=== PATIENT | female | born 1945 | race Caucasian/White ===

== ENCOUNTER 2019-11-04 02:52 | Inpatient (IN) | payer OTHER, SELFPAY ==
[2019-11-04] VITALS (19 sets, daily range): BP systolic 105–125; BP diastolic 39–88; PULSE 51–71; RESP 16–20; TEMP 36.2–36.7; O2SAT 95–100; BMI 27.6
--- NOTE | 2019-11-04 | ECHO_ITS ---
Patient Info Name: Michelle Ocampo Age: 74 years : 1945 Gender: Female Ht: 65 in Wt: 166 lbs BSA: 1.88 m2 HR: 66 bpm BP: 107 / 62 mmHg Technical Quality: Good Exam Date: 11/04/2019 11:22 AM Exam Location: [facility] Pulmonary Patient Status: Inpatient Admit Date: 11/04/2019 Staff Ordering Physician: Sukumar Bowie DO Cio: Monie Babcock RDCS Attending Provider: Sarita Gillespie PA-C Referring Physician: Jamir HANSON; Exam Type: CA echo doppler color flow Study Info Indications R79.89 - elevated troponin R07.89 - Other chest pain Complete two-dimensional, color flow and Doppler transthoracic echocardiogram is performed. Summary 1. Left ventricular chamber dimension is normal. 2. Left ventricular septal wall motion is abnormal with septal motion related to intraventricular conduction delay. 3. Left ventricular systolic function is normal, estimated at 50-55%. 4. The left ventricular diastolic function is grade I diastolic dysfunction. 5. E/e' 6 is not elevated. 6. Global longitudinal strain is mildly abnormal at -16.6%. 7. Left atrial chamber dimension is mildly enlarged. 8. Atrial septal aneurysm with mild left to right interatrial shunt by color doppler suggestive of atrial septal defect or patent foramen ovale. 9. There is mild aortic valve sclerosis. 10. No pulmonary hypertension, estimated pulmonary arterial systolic pressure is 21 mmHg. Left Ventricle E/e' 6 is not elevated. Global longitudinal strain is mildly abnormal at -16.6%. Left ventricular septal wall motion is abnormal with septal motion related to intraventricular conduction delay. Left ventricular chamber dimension is normal. Left ventricular systolic function is normal, estimated at 50-55%. The left ventricular diastolic function is grade I diastolic dysfunction. Right Ventricle Right ventricular chamber dimension is normal. Right ventricular systolic function is normal. Left Atria Left atrial chamber dimension is mildly enlarged. Right Atria Right atrial chamber dimension is normal. Atrial Septum Atrial septal aneurysm with mild left to right interatrial shunt by color doppler suggestive of atrial septal defect or patent foramen ovale. Aortic Valve The aortic valve is trileaflet. There is mild aortic valve sclerosis. There is no aortic valve stenosis. There is no aortic valve regurgitation. Pulmonic Valve There is no pulmonic regurgitation. Mitral Valve There is no mitral valve stenosis. There is no mitral valve regurgitation. Tricuspid Valve There is no tricuspid valve regurgitation. No pulmonary hypertension, estimated pulmonary arterial systolic pressure is 21 mmHg. Pericardium/Pleural There is no pericardial effusion. Inferior Vena Cava Normal inferior vena cava with >50% collapse upon inspiration consistent with normal right atrial pressure, 5 mmHg. Aorta The aortic root size at the sinus of Valsalva is normal. Left Ventricular Outflow Tract Name Value Normal LVOT 2D LVOT Diameter 2.0 cm LVOT Doppler LVOT Peak Gradient 4 mmHg LVOT Mean Gradient
--- NOTE | ~2019-11-04 | XR_ITS ---
EXAMINATION: XR chest 2V DATE: 11/04/2019 03:31 INDICATION: Chest tightness. TECHNIQUE: Frontal and lateral views of the chest were obtained. COMPARISON: Chest single view 06/09/2014 FINDINGS: The chest demonstrates clear lungs without pneumonia, pleural effusion, or pneumothorax. Th e heart size is normal. IMPRESSION: 1. No acute cardiopulmonary disease. Reviewed, dictated and finalized at location A.
[2019-11-04 03:34] LABS: Basophils Absolute Auto 0.1 K/mm3 (0.0-0.1); Basophils Percent Auto 0.7 % (0.2-1.2); Eosinophils Absolute Auto 0.4 K/mm3 (0-0.3); Eosinophils Percent Auto 4.3 % (0-4.4); Hematocrit 34.8 % (37.0-47.0); Hemoglobin 11.7 g/dL (12.0-15.0); Immature Granulocyte Absolute 0.02 K/mm3 (0.00-0.031); Immature Granulocyte Percent A 0.2 % (0-0.5); Lymphocytes Absolute Auto 2.31 K/mm3 (0.9-3.2); Lymphocytes Percent Auto 26.1 % (18.3-44.2); Mean Corpuscular HGB Conc 33.6 g/dl (32-36); Mean Corpuscular Hemoglobin 29.6 pg (26-34); Mean Corpuscular Volume 88.1 fl (80-100); Mean Platelet Volume 11.1 fl (7.4-10.4); Monocytes Absolute Auto 0.8 K/mm3 (0.1-0.6); Monocytes Percent Auto 8.8 % (2.6-8.5); Neutrophils Absolute Auto 5.3 K/mm3 (1.3-6.7); Neutrophils Percent Auto 59.9 % (45.5-73.1); Platelet Count Result 295 k/mm3 (150-375); Red Blood Count 3.95 M/mm3 (4.2-5.4); Red Cell Distribution Width 14.8 % (11.5-14.5); White Blood Count 8.9 K/mm3 (4.5-10.0)
[2019-11-04 03:48] LABS: Prothrombin Time 13.1 Seconds (11.1-14.7)
[2019-11-04 03:49] LABS: Partial Thromboplastin Time 28.9 SECONDS (22.3-36.8)
--- NOTE | 2019-11-04 03:49 | ED.GENADULT ---
HPI - General Adult General Chief complaint: Chest Pain Stated complaint: chest pain Time Seen by Provider: 11/04/19 02:53 History of Present Illness HPI narrative: Patient is a 74-year-old female who presents with multiple complaints. First complaint is tingling/paresthesias to bilateral lower and upper extremities. This is associated with muscle cramping. Symptoms have been pretty persistent for the last week. They originally started in the legs and then moved to involve the upper extremities. No known trauma. Patient has been working in her yard without issue and is wondering if she is sore from that. Unfortunately over the last 24 hours patient has been having central chest pressure without radiation to the shoulder/neck/arm. No aggravating or alleviating factors for this. Related Data Home Medications Medication Instructions Recorded Confirmed albuterol sulfate 90 mcg/actuation 1 inhalation INHALATION Q4H PRN 06/29/19 11/04/19 aerosol inhaler hydrochlorothiazide 12.5 mg tablet 12.5 mg PO DAILY 06/29/19 11/04/19 ibuprofen 400 mg PO Q6H PRN 11/04/19 11/04/19 Allergies Allergy/AdvReac Type Severity Reaction Status Date / Time buckwheat Allergy Unknown Verified 11/04/19 06:06 Review of Systems Review of Systems: All systems reviewed & are unremarkable except as noted in HPI and below Cardiovascular: Cardiovascular: Reports chest pain and Denies radiating jaw, neck or arm pain Respiratory: Respiratory: Denies cough, Denies dyspnea and Denies wheezing Musculoskeletal: Musculoskeletal: Reports back pain, Denies myalgias and Reports muscle cramps Neurologic: Denies focal weakness and Reports numbness PMFSH Past Medical History Medical History (Updated 11/04/19 @ 06:40 by Anurag Rodriguez MD) Essential (primary) hypertension Surgical History Surgical History (Updated 11/04/19 @ 06:42 by Anurag Rodriguez MD) H/O gastric bypass Social History Social History Smoking status: Never smoker Second hand tobacco smoke exposure: No Alcohol intake: never Substance use: never Substance use type: does not use Gender identity (if verbalized by the patient): Female Spiritual care concerns: No Agree to blood products: No Exam Narrative: Exam Narrative: GENERAL: Well-appearing, well-nourished, and in no acute distress. HEAD: Normocephalic, atraumatic. ENT: Mucous membranes moist. NECK: Supple. CHEST: Clear to auscultation. No respiratory distress. HEART: Regular rate and rhythm. Normal peripheral pulses. ABDOMEN: Soft, nontender, nondistended. EXTREMITIES: Normal range of motion. No edema. Back: No midline tenderness of thoracic or lumbar spine. There is mild paraspinal muscle tenderness in the L4 region greater than left. SKIN: Warm, dry, no rash. NEURO: Cranial nerves II through XII intact, sharp/soft touch intact in upper and lower extremities. Alert and oriented x3. Course Course Emergency Course: Patient informed of results. Admit to hospitalist. IV potassium ordered. Will trend troponins at recommendation of cardiology and not give heparin at this time. Vital Signs Vital signs: Vital Signs Temperature 97.5 F L 11/04/19 03:00 Pulse Rate 65 11/04/19 03:00 Respiratory Rate 20 11/04/19 03:00 Blood Pressure 115/73 11/04/19 03:00 Pulse Oximetry 100 11/04/19 03:00 Temperature 98.1 F 11/04/19 05:25 Pulse Rate 64 11/04/19 05:25 Respiratory Rate 20 11/04/19 05:25 Blood Pressure 111/47 L 11/04/19 05:25 Pulse Oximetry 95 11/04/19 05:25 Medical Decision Making Vital Signs Vital Signs: Vital Signs Temperature 97.5 F L 11/04/19 03:00 Pulse Rate 65 11/04/19 03:00 Respiratory Rate 20 11/04/19 03:00 Blood Pressure 115/73 11/04/19 03:00 Pulse Oximetry 100 11/04/19 03:00 Temperature 98.1 F 11/04/19 05:25 Pulse Rate 64 11/04/19 05:25 Respiratory Rate 20 11/04/19 05:25 Blood Pressure 111/47 L 11/04/19 05:25 Pulse
[2019-11-04 04:01] LABS: Blood Urea Nitrogen 19 mg/dL (7-17); Calcium 5.5 mg/dL (8.4-10.2); Carbon Dioxide 33 mmol/L (22-30); Chloride 101 mmol/L (98-107); Estimated CRCL calculation 34 ml/min; Estimated Glomerular Filt Rate 44; Glucose 107 mg/dL (65-105); Potassium 2.2 mmol/L (3.4-5.0); Sodium 141 mmol/L (137-145)
[2019-11-04] MEDS: NITROGLYCERIN OINTMENT 1 INCH DOSE 0.5 INCH TRANSDERM (05:03)
[2019-11-04] MEDS: CALCIUM GLUC 1,000 MG/NS 50 ML 1,000 MG/50 ML BAG 100 MG IVPB (05:04)
--- NOTE | 2019-11-04 05:43 | ADMGEN ---
This patient, Michelle Ocampo, was admitted to IMU Room 201-01 on 11/04/19 at 0520. Patient/family oriented to hospital policies and general routines including ID bracelet, bed and alarms, visiting hours, pain management, procedures, bathroom and other care routines, personal items, smoking policy, room service/diet, and visiting hours. Valuables list has been completed. Information on how to activate the Rapid Response Team has been discussed. Patient/Family are encouraged to report perceived risks to care and to ask questions if they do not understand what they are told or what they should do.
[2019-11-04 07:10] LABS: Troponin I 0.163 ng/mL (0.000-0.034)
[2019-11-04 07:59] LABS: Troponin I 0.191 ng/mL (0.000-0.034)
--- NOTE | 2019-11-04 10:11 | ECG_ITS ---
Measurements Intervals Basin Rate: 63 P: -17 MS: 104 QRS: 53 QRSD: 77 T: 16 QT: 411 QTc: 423 Interpretive Statements SINUS OR ECTOPIC ATRIAL RHYTHM WITH SHORT MS INTERVAL ATRIAL PREMATURE COMPLEXES NONSPECIFIC ST & T-WAVE ABNORMALITY- ANTEROLAT/INF LEADS BASELINE WANDER- V2 BORDERLINE ECG Electronically Signed On 11-04-2019 10:43:49 CDT by Sukumar SULLIVAN
[2019-11-04 10:53] LABS: Blood Urea Nitrogen 16 mg/dL (7-17); Calcium 5.7 mg/dL (8.4-10.2); Carbon Dioxide 33 mmol/L (22-30); Chloride 103 mmol/L (98-107); Estimated CRCL calculation 38 ml/min; Estimated Glomerular Filt Rate 44; Glucose 100 mg/dL (65-105); Magnesium 0.9 mg/dL (1.6-2.3); Sodium 141 mmol/L (137-145)
--- NOTE | 2019-11-04 11:15 | PM.CNCAR ---
Assessment and Plan Assessment and plan (1) Essential (primary) hypertension: Code(s): I10 - Essential (primary) hypertension Status: Acute Assessment and Plan: Stable. Discontinue HCTZ. Start Toprol XL 12.5 mg daily. (2) H/O paroxysmal supraventricular tachycardia: Code(s): Z86.79 - Personal history of other diseases of the circulatory system Status: Acute Assessment and Plan: Start Toprol XL 125 mg daily. (3) Acute hypokalemia: Code(s): E87.6 - Hypokalemia Status: Acute Assessment and Plan: Replete potassium and Mag levels. (4) Chest pain: Code(s): R07.9 - Chest pain, unspecified Status: Acute Assessment and Plan: This could be related to muscle spasms in general affecting extremities and chest. (5) Elevated troponin: Code(s): R79.89 - Other specified abnormal findings of blood chemistry Status: Acute Assessment and Plan: Mild and trending down, could be related to hypokalemia and muscle spasms. Obtain echo to assess for wall motion abnormalities. History of Present Illness History of Present Illness Consult date/time: 11/04/19 11:15 Reason for consult: Elevated troponin and chest pains. 74 yr old woman with a history of hypertension PSVT (stopped Diltiazem due to edema) presents to hospital due to noting cramping and numbness/tingling of upper and lower extremities in the past 1 week and then it went to her diaphragm and chest with chest pressure at rest up to 5/10 in intensity and currently at 1/10. States she has been taking HCTZ for many years. She was trying to drink more milk but has lactose intolerance and was having diarrhea for over a month and last episode was a month ago when she stopped drinking milk. She can walk at least 4 blocks without any problems of chest pain or sob, normally. Upon arrival to ED labs shows her potassium is very low at 2.2, Mag 0.9, Calcium 5.5. Troponins mildly elevated and trending down 0.19 to 0.16 to 0.15. EKG shows sinus rhythm with borderline ST abonormality in anterolat/inf leads. Reason For Visit: Stemi, Hypokalemia, Hypocalcemia, Paresthesia Review of Systems Review of Systems: All systems reviewed & are unremarkable except as noted in HPI and below Constitutional: Constitutional: Reports as per HPI and Denies chills Cardiovascular: Cardiovascular: Reports as per HPI, Reports chest pain, Denies leg edema and Denies lightheadedness Respiratory: Respiratory: Reports as per HPI and Denies dyspnea Gastrointestinal: Gastrointestinal: Reports as per HPI and Denies abdominal pain Genitourinary: Genitourinary: Reports as per HPI and Denies urinary frequency Musculoskeletal: Musculoskeletal: Reports as per HPI and Reports myalgias Comments: Cramping of lower extremities then progressed to diaphragm and into chest. Tingling of upper extremities. Neurologic: Reports as per HPI and Reports numbness PMFSH Past Medical History Medical History (Updated 11/04/19 @ 11:23 by Sukumar Bowie DO) Essential (primary) hypertension Surgical History Surgical History (Updated 11/04/19 @ 06:42 by Anurag Rodriguez MD) H/O gastric bypass Social History Social History Smoking status: Never smoker Second hand tobacco smoke exposure: No Alcohol intake: never Substance use: never Substance use type: does not use Gender identity (if verbalized by the patient): Female Spiritual care concerns: No Agree to blood products: No Meds Home Medications and Allergies Home Medications Medication Instructions Recorded Confirmed Type albuterol sulfate 90 mcg/actuation 1 inhalation INHALATION Q4H PRN 06/29/19 11/04/19 History aerosol inhaler hydrochlorothiazide 12.5 mg tablet 12.5 mg PO DAILY 06/29/19 11/04/19 History lisinopril 5 mg tablet 5 mg PO DAILY #90 tablet 06/29/19 11/04/19 Rx ibuprofen 400 mg PO Q6H PRN 11/04/19 11/04/19 History Allergies Allergy/AdvReac T
--- NOTE | 2019-11-04 11:31 | PM.IMHP ---
H&P: HPI History of Present Illness Chief complaint: Extremity numbness/tingling and chest pain Narrative: Date of Service 11/04/19 ; 0864 The supervising physician for this history and physical is Dr Diane Rae. Ms. Ocampo is a pleasant 74yo F with history of hypertension who presented to the ED for evaluation of chest pressure. She notes that about 1 week ago, she began to notice numbness and tingling in both of her legs from her feet to her hips. A few days after that, she noticed numbness and tingling in her arms and hands accompanied by muscle cramps. Her symptoms are symmetric bilaterally. She denies any back, leg, or arm pain. She denies bowel or bladder incontinence. She described that, in the last day or two, the numbness and tingling had ascended to her trunk and gave her a sensation of pressure in the middle/left side of her chest. She noted her numbness/tingling worsened in the ER when the blood pressure cuff squeezed her arm and made her hand cramp up. She denies any shortness of breath or cough. She denies any nausea or vomiting. Her potassium was 2.2 on arrival and she recieved 40 meq IV potassium. Troponins are elevated. She has previously followed with [facility] over 5 years ago but wishes to establish care with Dr Bowie since her sees Dr Bowie. Discussed case with Dr Bowie who has agreed to see Ms. Ocampo in consultation. She is being admitted for chest pain and hypokalemia. Review of Systems Review of Systems: Narrative: She reports parasthesias described above and a chest pressure. No nausea, vomiting, diarrhea, or constipation. No headaches, dizziness, or lightheadedness. Twelve systems were reviewed with pertinent positives and negatives as per HPI. Except as documented, all other systems were reviewed and are negative. [facility] Past Medical History Medical History (Updated 11/04/19 @ 20:03 by Sarita Gillespie PA-C) Complaint of paresthesia Essential (primary) hypertension History of nephrolithotomy with removal of calculi Surgical History Surgical History H/O cataract removal with insertion of prosthetic lens Right - May 2019 History of cholecystectomy 1970s. 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 She denies alcohol use, remote history of smoking cigarettes for 1 year, denies substance use. PCP is Dr Moya. She designates her , Will, as her surrogate decision maker. She wishes to be full code status. Smoking status: Never smoker Second hand tobacco smoke exposure: No Alcohol intake: never Substance use: never Substance use type: does not use Living arrangements: with family Occupation/Education: retired Gender identity (if verbalized by the patient): Female Spiritual care concerns: No Agree to blood products: No Meds Home Medications and Allergies Home Medications Medication Instructions Recorded Confirmed Type albuterol sulfate 90 mcg/actuation 1 inhalation INHALATION Q4H PRN 06/29/19 11/04/19 History aerosol inhaler hydrochlorothiazide 12.5 mg tablet 12.5 mg PO DAILY 06/29/19 11/04/19 History lisinopril 5 mg tablet 5 mg PO DAILY #90 tablet 06/29/19 11/04/19 Rx ibuprofen 400 mg PO Q6H PRN 11/04/19 11/04/19 History Allergies Allergy/AdvReac Type Severity Reaction Status Date / Time buckwheat Allergy Unknown Verified 11/04/19 06:06 Vital Signs Last Vital Signs Temp 97.1 F L 11/04/19 16:00 Pulse 59 L 11/04/19 18:00 Resp 16 11/04/19 16:00
[2019-11-04] MEDS: METOPROLOL SUCCINATE EXT REL 12.5 MG TABCR PO (12:52)
[2019-11-04] MEDS: ASPIRIN 325 MG TABLET PO (12:52)
[2019-11-04] MEDS: POTASSIUM CHLORIDE 20 MEQ TABLET 80 MEQ PO (12:53)
[2019-11-04] MEDS: ACETAMINOPHEN 325 MG TABLET 650 MG PO (12:53)
[2019-11-04] MEDS: MAGNESIUM SULF 1 GM/D5W 100 ML 1 GM/100 ML BAG IVPB (12:55)
[2019-11-04] MEDS: MAGNESIUM SULF 2 GM/WATER 50ML 2 GM/50 ML BAG IVPB (12:55)
[2019-11-04 15:11] LABS: Add Urine Microscopic? YES; Appearance Urine Clear (Clear); Bacteria Urine Trace /hpf; Bilirubin Urine Negative (Negative); Blood Urine 3+ (Negative); Color Urine Yellow (Yellow); Glucose Urine UA Negative (Negative); Ketones Urine Negative (Negative); Leukocyte Esterase Ur Trace LEU/UL (Negative); Mucus Urine Rare /lpf; Nitrate Urine Negative (Negative); Protein Urine 1+ mg/dL (Negative); RBC Urine 0-2 /hpf (0-2); Squamous Epithelial Cell Urine Moderate /hpf (Few); Urobilinogen Urine Negative mg/dL (<2.0)
[2019-11-04] MEDS: CALCIUM GLUC 2,000 MG/NS 100ML 2,000 MG/100 ML BAG 100 MG IVPB (17:19)
[2019-11-04 20:12] LABS: Alanine Aminotransferase 74 U/L (4-35); Albumin Level 3.1 g/dL (3.5-5.1); Alkaline Phosphatase 54 U/L (38-126); Aspartate Amino Transferase 407 U/L (14-36); Bilirubin,Total 0.9 mg/dL (0.2-1.3); Blood Urea Nitrogen 14 mg/dL (7-17); Calcium 6.1 mg/dL (8.4-10.2); Carbon Dioxide 31 mmol/L (22-30); Chloride 103 mmol/L (98-107); Estimated CRCL calculation 42 ml/min; Estimated Glomerular Filt Rate 49; Glucose 101 mg/dL (65-105); Magnesium 1.9 mg/dL (1.6-2.3); Phosphorus 3.3 mg/dL (2.5-4.5); Potassium 2.5 mmol/L (3.4-5.0); Sodium 140 mmol/L (137-145)
[2019-11-04] MEDS: POTASSIUM CHLORIDE 20 MEQ TABLET 40 MEQ PO (21:27)
[2019-11-05] VITALS (13 sets, daily range): BP systolic 94–119; BP diastolic 44–64; PULSE 43–56; RESP 16–21; TEMP 36.1–36.7; O2SAT 98–100
--- NOTE | 2019-11-05 00:59 | PC.NURSE ---
Took report from Kendra Reed awaiting transfer from IMU.
--- NOTE | 2019-11-05 01:21 | PC.NURSE ---
This patient, Michelle Ocampo, was transferred to [[id number] ] on 11/05/19 at 0122. Personal belongings sent with patient. Belongings list checked and signed with receiving [ ]. Report given to [Janine]. Appropriate documentation sent with patient.
[2019-11-05 01:51] LABS: Blood Urea Nitrogen 11 mg/dL (7-17); Calcium 5.8 mg/dL (8.4-10.2); Carbon Dioxide 31 mmol/L (22-30); Chloride 105 mmol/L (98-107); Estimated CRCL calculation 46 ml/min; Estimated Glomerular Filt Rate 55; Glucose 122 mg/dL (65-105); Potassium 2.8 mmol/L (3.4-5.0); Sodium 139 mmol/L (137-145)
[2019-11-05 03:43] LABS: Alanine Aminotransferase 83 U/L (4-35); Albumin Level 3.3 g/dL (3.5-5.1); Alkaline Phosphatase 59 U/L (38-126); Aspartate Amino Transferase 403 U/L (14-36); Bilirubin,Total 0.8 mg/dL (0.2-1.3); Blood Urea Nitrogen 11 mg/dL (7-17); Calcium 5.8 mg/dL (8.4-10.2); Carbon Dioxide 28 mmol/L (22-30); Chloride 107 mmol/L (98-107); Cholesterol 84 mg/dL (0-200); Estimated CRCL calculation 46 ml/min; Estimated Glomerular Filt Rate 55; Glucose 101 mg/dL (65-105); HDL Direct 31 mg/dL; Magnesium 1.8 mg/dL (1.6-2.3); Sodium 139 mmol/L (137-145); Triglycerides 112 mg/dL (<150)
[2019-11-05 03:54] LABS: LDL Cholesterol Direct 35 mg/dL
[2019-11-05 04:03] LABS: Troponin I 0.109 ng/mL (0.000-0.034)
--- NOTE | 2019-11-05 08:59 | PM.PNCARD ---
Progress Note: A&P Assessment and Plan (1) Elevated troponin: Code(s): R79.89 - Other specified abnormal findings of blood chemistry Status: Acute Assessment and Plan: Mildly elevated and trending down. Doubt ACS. Probably related to hypokalemia and muscle spasms. Echo shows EF 50-55% with no wall motion abnormalities. In near future as outpatient would obtain stress nuclear test. (2) H/O paroxysmal supraventricular tachycardia: Code(s): Z86.79 - Personal history of other diseases of the circulatory system Status: Acute (3) Essential (primary) hypertension: Code(s): I10 - Essential (primary) hypertension Status: Acute Assessment and Plan: Low normal due to NTG patch yesterday. Start ToproL XL12.5 mg daily if SBP >100 mmHg. (4) Acute hypokalemia: Code(s): E87.6 - Hypokalemia Status: Acute Assessment and Plan: Due to combination of HCTZ and diarrhea last month from lactose intolerance. Given low albumin and calcium, malabsorption? Replete levels and hold off on discharge until potassium >3.5. (5) Hypocalcemia: Code(s): E83.51 - Hypocalcemia Status: Acute Assessment and Plan: Replete levels. Subjective Date/time seen: 11/05/19 08:59 Denies chest pain or sob. Has some right shoulder discomfort. Exam Const: General: comfortable and no acute distress Neck: Neck: no JVD Carotids: no bruits Resp: Auscultation: clear to auscultation bilaterally, no crackles, no rales, no rhonchi and no wheezes Cardio: Rate: regular rate Rhythm: regular rhythm Heart sounds: no murmurs GI: Inspection: non-distended Neuro: Speech: normal speech Extrem: Right lower extremity: no edema Left lower extremity: no edema Objective Data Vital Signs Vital Signs: Vital Signs - 24 hr 11/04/19 10:00 11/04/19 12:00 11/04/19 12:27 Temperature 97.6 F Pulse Rate 65 57 L 57 L Respiratory Rate 20 Blood Pressure 109/49 L Pulse Oximetry 98 11/04/19 12:52 11/04/19 14:00 11/04/19 16:00 Temperature 97.1 F L Pulse Rate 61 54 L 52 L Respiratory Rate 16 Blood Pressure 109/48 L Pulse Oximetry 100 11/04/19 18:00 11/04/19 19:55 11/04/19 20:00 Temperature 97.2 F L Pulse Rate 59 L 51 L 56 L Respiratory Rate 16 16 Blood Pressure 116/39 L Pulse Oximetry 98 98 11/04/19 21:39 11/04/19 23:49 11/05/19 00:00 Temperature 97.4 F L Pulse Rate 52 L 56 L 56 L Respiratory Rate 16 16 Blood Pressure 105/53 L Pulse Oximetry 98 98 11/05/19 00:45 11/05/19 01:25 11/05/19 01:35 Temperature 97.2 F L Pulse Rate 54 L 50 L 51 L Respiratory Rate 16 16 Blood Pressure 97/64 L Pulse Oximetry 98 99 11/05/19 04:31 11/05/19 06:00 Temperature 97.3 F L Pulse Rate 47 L 53 L Respiratory Rate 16 Blood Pressure 94/44 L Pulse Oximetry 99 Intake/Output Intake/Output: Intake & Output 11/02/19 11/03/19 11/04/19 11/05/19 23:59 23:59 23:59 23:59 Intake Total 2730 1080 Output Total 1700 Balance 1030 1080 Meds/Results Medications: Active Medications Generic Name Dose Route Start Last Admin Trade Name Freq PRN Reason Stop Dose Admin Acetaminophen 650 mg 11/04/19 12:00 11/04/19 12:53 Tylenol Tablet PO 650 mg Q6H PRN Administration Mild Pain (1-3) or Fever Aspirin 325 mg 11/04/19 08:00 11/04/19 12:52 Aspirin PO 325 mg DAILY@0800 [facility] Administration Sodium Chloride 500 mls @ 500 mls/hr 11/05/19 08:17 Normal Saline Iv IV CONT 11/05/19 09:16 .Q1H ONE Calcium Gluconate 2,000 mg in 100 mls @ 100 mls/hr 11/05/19 08:45 Calcium Gluc 2,000 Mg/Ns 100ml IVPB 11/05/19 09:44 ONCE ONE Metoprolol Succinate 12.5 mg 11/04/19 09:00 11/04/19 12:52 Toprol Xl PO 12.5 mg QAM EDILMA Administration Promethazine HCl 12.5 mg 11/04/19 04:46 Phenergan Inj IV PUSH Q6H PRN Nausea Radiology Results: ITS Impressions Chest X-Ray 11/04/19 07:50 ARLINE
[2019-11-05] MEDS: MAGNESIUM SULF 1 GM/D5W 100 ML 1 GM/100 ML BAG IVPB (09:56)
[2019-11-05] MEDS: ASPIRIN 325 MG TABLET PO (09:56)
[2019-11-05] MEDS: CALCIUM GLUC 2,000 MG/NS 100ML 2,000 MG/100 ML BAG 100 MG IVPB (10:09)
--- NOTE | 2019-11-05 10:32 | PM.IMPN ---
Progress Note: A&P Assessment and Plan (1) Acute hypokalemia: Code(s): E87.6 - Hypokalemia Status: Acute Assessment and Plan: Potassium as low as 2.0 yesterday, improving now with replacement. Repeat labs 1900 after next K rider finishes. Continue to aggressively replace K, Mag and calcium and monitor labs. May have been related to correction HCTZ use and recent diarrhea. HCTZ discontinued. Anticipate possible discharge ?tomorrow if K is improved and stable. (2) Hypocalcemia: Code(s): E83.51 - Hypocalcemia Status: Acute Assessment and Plan: Replaced again today with calcium gluconate. Trend with labs. (3) Paresthesia: Code(s): R20.2 - Paresthesia of skin Status: Acute Assessment and Plan: [place] to be related to electrolyte losses. See above. Now improved today if not completely resolved with electrolyte correction. (4) Chest pain: Qualifiers: Chest pain type: unspecified Qualified Code(s): R07.9 - Chest pain, unspecified Code(s): R07.9 - Chest pain, unspecified Status: Acute Assessment and Plan: [place] to be related to above, muscle cramping. Dr Bowie consulted per patient request and appreciate his recommendations - noted his plan for outpatient follow up with stress test. (5) Elevated troponin: Code(s): R79.89 - Other specified abnormal findings of blood chemistry Status: Acute Assessment and Plan: Troponins flat and trending down. ACS not suspected, since pain has improved with electrolyte correction. (6) Acute renal failure: Qualifiers: Acute renal failure type: unspecified Qualified Code(s): N17.9 - Acute kidney failure, unspecified Code(s): N17.9 - Acute kidney failure, unspecified Status: Resolved Assessment and Plan: Resolved. Cr 1.0. Hold home lisinopril and HCTZ. 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 Last 94/44 - asymptomatic. Home HCTZ discontinued, lisinopril held. Dr Bowie initiated metoprolol as long as SBP is > 100. Continue to monitor BP. Subjective Date/time seen: 11/05/19 10:15 Interval history: Ms. Ocampo is a 74yo F admitted due to chest pain and extremity paresthesias, hypokalemia. She reports her JARETH leg and arm numbness and tingling has resolved today. She notes the pressure sensation in her chest has diminished. She had one episode of loose stool this AM but otherwise offers no complaints. She denies shortness of breath or cough. No abdominal pain, nausea, or vomiting. Review of Systems Review of Systems: Narrative: Twelve systems were reviewed with pertinent positives and negatives as per HPI. Exam Narrative: Exam Narrative: General: Well-appearing female sitting up on edge of bed in no acute distress. HEENT: Normocephalic, EOMI, oral mucosa moist. Chest: Clear to auscultation throughout all lung espinosa. Respirations are even and nonlabored. Tolerating room air. Heart: Rate and rhythm regular. Abdomen: Soft, nontender, nondistended, bowel sounds present. Extremities: Peripheral pulses intact. No edema, erythema, or pain to palpation. Neurologic: Alert and oriented x4. No focal neuro deficits appreciate. Speech is clear. Objective Data Vital Signs Vital Signs: Last Vital Signs Temp 97.3 F L 11/05/19 06:00 Pulse 53 L 11/05/19 09:18 Resp 16 11/05/19 06:00 BP 94/44 L 11/05/19 06:00 Pulse Ox 99 11/05/19 06:00 Intake/Output Intake/Output: Intake & Output 11/02/19 11/03/19 11/04/19 11/05/19 23:59 23:59 23:59 23:59 Intake Total 2730 1080 Output
[2019-11-05] MEDS: SODIUM CHLORIDE 0.9% IV 500 ML IV CONT (10:59)
[2019-11-05 11:28] LABS: Alanine Aminotransferase 78 U/L (4-35); Alkaline Phosphatase 52 U/L (38-126); Aspartate Amino Transferase 371 U/L (14-36); Bilirubin,Total 0.9 mg/dL (0.2-1.3); Blood Urea Nitrogen 9 mg/dL (7-17); Calcium 6.1 mg/dL (8.4-10.2); Carbon Dioxide 27 mmol/L (22-30); Chloride 106 mmol/L (98-107); Estimated CRCL calculation 50 ml/min; Estimated Glomerular Filt Rate > 60; Glucose 112 mg/dL (65-105); Magnesium 2.2 mg/dL (1.6-2.3); Phosphorus 2.6 mg/dL (2.5-4.5); Sodium 138 mmol/L (137-145)
[2019-11-05 11:32] LABS: Potassium 2.9 mmol/L (3.4-5.0)
[2019-11-05] MEDS: POTASSIUM CHLORIDE 20 MEQ TABLET 60 MEQ PO (14:31)
[2019-11-05 19:17] LABS: Blood Urea Nitrogen 9 mg/dL (7-17); Calcium 6.5 mg/dL (8.4-10.2); Carbon Dioxide 31 mmol/L (22-30); Chloride 107 mmol/L (98-107); Estimated CRCL calculation 50 ml/min; Estimated Glomerular Filt Rate > 60; Glucose 97 mg/dL (65-105); Magnesium 1.9 mg/dL (1.6-2.3); Potassium 3.5 mmol/L (3.4-5.0); Sodium 141 mmol/L (137-145)
[2019-11-06] VITALS (10 sets, daily range): BP systolic 116–139; BP diastolic 61–88; PULSE 51–74; RESP 16–20; TEMP 36.1–37; O2SAT 97–99
[2019-11-06 04:50] LABS: Hematocrit 30.8 % (37.0-47.0); Hemoglobin 10.4 g/dL (12.0-15.0); Mean Corpuscular HGB Conc 33.8 g/dl (32-36); Mean Corpuscular Hemoglobin 30.1 pg (26-34); Mean Platelet Volume 10.6 fl (7.4-10.4); Platelet Count Result 239 k/mm3 (150-375); Red Blood Count 3.46 M/mm3 (4.2-5.4); Red Cell Distribution Width 14.6 % (11.5-14.5); White Blood Count 6.5 K/mm3 (4.5-10.0)
[2019-11-06 05:10] LABS: Alanine Aminotransferase 71 U/L (4-35); Albumin Level 2.8 g/dL (3.5-5.1); Alkaline Phosphatase 59 U/L (38-126); Aspartate Amino Transferase 284 U/L (14-36); Bilirubin,Total 0.6 mg/dL (0.2-1.3); Blood Urea Nitrogen 8 mg/dL (7-17); Calcium 6.3 mg/dL (8.4-10.2); Carbon Dioxide 29 mmol/L (22-30); Chloride 109 mmol/L (98-107); Estimated CRCL calculation 50 ml/min; Estimated Glomerular Filt Rate > 60; Glucose 116 mg/dL (65-105); Magnesium 1.7 mg/dL (1.6-2.3); Phosphorus 2.9 mg/dL (2.5-4.5); Potassium 3.1 mmol/L (3.4-5.0); Sodium 140 mmol/L (137-145)
[2019-11-06] MEDS: POTASSIUM CHLORIDE 20 MEQ TABLET 60 MEQ PO ×2 (08:18→14:38)
[2019-11-06] MEDS: ASPIRIN 325 MG TABLET PO (08:18)
[2019-11-06] MEDS: MAGNESIUM SULF 2 GM/WATER 50ML 2 GM/50 ML BAG IVPB (08:18)
--- NOTE | 2019-11-06 09:49 | PM.PNCARD ---
Progress Note: A&P Assessment and Plan (1) Elevated troponin: Code(s): R79.89 - Other specified abnormal findings of blood chemistry Status: Acute Assessment and Plan: Mildly elevated and trending down. Doubt ACS. Probably related to hypokalemia and muscle spasms. Echo shows EF 50-55% with no wall motion abnormalities. In near future as outpatient would obtain stress nuclear test. F/U with me in 2 weeks. (2) H/O paroxysmal supraventricular tachycardia: Code(s): Z86.79 - Personal history of other diseases of the circulatory system Status: Acute (3) Essential (primary) hypertension: Code(s): I10 - Essential (primary) hypertension Status: Acute Assessment and Plan: Low normal due to NTG patch 2 days ago. Due to bradycardia and no PSVT since 2013, will stop Toprol and resume home Lisinopril 5 mg daily. (4) Acute hypokalemia: Code(s): E87.6 - Hypokalemia Status: Acute Assessment and Plan: Due to combination of HCTZ and diarrhea last month from lactose intolerance. Given low albumin and calcium, malabsorption? Transaminitis improving. Replete levels and hold off on discharge until potassium >3.5. (5) Hypocalcemia: Code(s): E83.51 - Hypocalcemia Status: Acute Assessment and Plan: Replete levels. Subjective Date/time seen: 11/06/19 09:49 Denies chest pain or sob. Exam Const: General: comfortable and no acute distress Neck: Neck: no JVD Carotids: no bruits Resp: Auscultation: clear to auscultation bilaterally, no crackles, no rales, no rhonchi and no wheezes Cardio: Rate: bradycardic Rhythm: regular rhythm Heart sounds: no murmurs GI: Inspection: non-distended Neuro: Speech: normal speech Extrem: Right lower extremity: no edema Left lower extremity: no edema Objective Data Vital Signs Vital Signs: Vital Signs - 24 hr 11/05/19 12:00 11/05/19 14:00 11/05/19 16:00 Temperature 97.0 F L Pulse Rate 43 L 52 L 51 L Respiratory Rate 16 Blood Pressure 96/48 L Pulse Oximetry 98 11/05/19 20:00 11/05/19 23:50 11/06/19 00:00 Temperature 98.0 F Pulse Rate 51 L 55 L 53 L Respiratory Rate 21 H Blood Pressure 119/61 Pulse Oximetry 100 11/06/19 04:00 11/06/19 06:00 Temperature 97.0 F L Pulse Rate 55 L 62 Respiratory Rate 20 Blood Pressure 131/88 Pulse Oximetry 99 Intake/Output Intake/Output: Intake & Output 11/03/19 11/04/19 11/05/19 11/06/19 23:59 23:59 23:59 23:59 Intake Total 2730 3230 550 Output Total 1700 Balance 1030 3230 550 Meds/Results Medications: Active Medications Generic Name Dose Route Start Last Admin Trade Name Freq PRN Reason Stop Dose Admin Acetaminophen 650 mg 11/04/19 12:00 11/04/19 12:53 Tylenol Tablet PO 650 mg Q6H PRN Administration Mild Pain (1-3) or Fever Aspirin 325 mg 11/04/19 08:00 11/06/19 08:18 Aspirin PO 325 mg DAILY@0800 EDILMA Administration Promethazine HCl 12.5 mg 11/04/19 04:46 Phenergan Inj IV PUSH Q6H PRN Nausea Radiology Results: ITS Impressions Chest X-Ray 11/04/19 07:50 IMPRESSION: 1. No acute cardiopulmonary disease. Labs Labs: Laboratory Results - last 24 hr 11/05/19 11/05/19 11/06/19 10:29 18:57 04:25 WBC 6.5 RBC 3.46 L Hgb 10.4 L Hct 30.8 L MCV 89.0 MCH 30.1 MCHC 33.8 RDW 14.6 H Plt Count 239 MPV 10.6 H Sodium 138 141 Potassium 2.9 L 3.5 Chloride 106 107 Carbon Dioxide 27 31 H BUN 9 9 Creatinine 0.90 0.90 Estim Creat Clear Calc 50 50 Estimated GFR > 60 > 60 Glucose 112 H 97 Calcium 6.1 L 6.5 L Phosphorus 2.6 Magnesium 2.2 1.9 Total Bilirubin 0.9 AST 371 H ALT 78 H Alkaline Phosphatase 52 Total Protein 6.0 L Albumin 3.0 L 11/06/19 04:25 WBC RBC Hgb Hct MCV MCH MCHC RDW Plt Count MPV Sodium 140 Potassium 3.1 L Chloride 109 H Ca
[2019-11-06 13:11] LABS: Magnesium 2.2 mg/dL (1.6-2.3); Potassium 3.2 mmol/L (3.4-5.0)
--- NOTE | 2019-11-06 13:35 | PM.IMPN ---
Progress Note: A&P Assessment and Plan (1) Acute hypokalemia: Code(s): E87.6 - Hypokalemia Status: Acute Assessment and Plan: Potassium as low as 2.0 on arrival, slowly improving now with replacement. Repeat labs 1800; hopeful for discharge tomorrow if K > 3.5. Continue to aggressively replace K, Mag and calcium and monitor labs. May have been related to [facility] HCTZ use and recent diarrhea. HCTZ discontinued. (2) Hypocalcemia: Code(s): E83.51 - Hypocalcemia Status: Acute Assessment and Plan: Replaced with calcium gluconate. Trend with labs. (3) Paresthesia: Code(s): R20.2 - Paresthesia of skin Status: Resolved Assessment and Plan: [place] to be related to electrolyte losses. See above. Now completely resolved with electrolyte correction. (4) Chest pain: Qualifiers: Chest pain type: unspecified Qualified Code(s): R07.9 - Chest pain, unspecified Code(s): R07.9 - Chest pain, unspecified Status: Resolved Assessment and Plan: [place] to be related to above, muscle cramping. Dr Bowie consulted per patient request and appreciate his recommendations - noted his plan for outpatient follow up with stress test. (5) Elevated troponin: Code(s): R79.89 - Other specified abnormal findings of blood chemistry Status: Acute Assessment and Plan: Troponins flat and trending down. ACS not suspected, since pain has improved with electrolyte correction. (6) Acute renal failure: Qualifiers: Acute renal failure type: unspecified Qualified Code(s): N17.9 - Acute kidney failure, unspecified Code(s): N17.9 - Acute kidney failure, unspecified Status: Resolved Assessment and Plan: Resolved. Cr 0.9. Hold HCTZ. (7) Essential (primary) hypertension: Code(s): I10 - Essential (primary) hypertension Status: Acute Assessment and Plan: BP stable. Continue to monitor. Home HCTZ discontinued due to hypokalemia, lisinopril resumed. Subjective Date/time seen: 11/06/19 0830 Interval history: Ms. Ocampo is a 74yo F admitted due to chest pain and extremity paresthesias, hypokalemia. She reports her JARETH leg and arm numbness and tingling are completely gone. She has not had chest pain since the day she came in. No diarrhea today. She denies shortness of breath or cough. No abdominal pain, nausea, or vomiting. Review of Systems Review of Systems: Narrative: Twelve systems were reviewed with pertinent positives and negatives as per HPI. Exam Narrative: Exam Narrative: General: Well-appearing female sitting up on edge of bed in no acute distress. HEENT: Normocephalic, EOMI, oral mucosa moist. Chest: Clear to auscultation throughout all lung espinosa. Respirations are even and nonlabored. Tolerating room air. Heart: Rate and rhythm regular. Abdomen: Soft, nontender, nondistended, bowel sounds present. Extremities: Peripheral pulses intact. No edema, erythema, or pain to palpation. Neurologic: Alert and oriented x4. No focal neuro deficits appreciate. Speech is clear. Objective Data Vital Signs Vital Signs: Last Vital Signs Temp 97.6 F 11/06/19 14:00 Pulse 74 11/06/19 14:00 Resp 16 11/06/19 14:00 BP 139/74 11/06/19 14:00 Pulse Ox 97 11/06/19 14:00 Intake/Output Intake/Output: Intake & Output 11/03/19 11/04/19 11/05/19 11/06/19 23:59 23:59 23:59 23:59 Intake Total 2730 3230 1270 Output Total 1700 Balance 1030 3230 1270 Meds/Results Medications: Active Medications Generic Name Dose Route Start Last Admin Trade Name Freq PRN Reason Stop Dose Admin Acetaminophen 650 mg 11/04/19 12:00 11/04/19 12:53 Tylenol Tablet PO 650 mg Q6H PRN Administr
[2019-11-06 18:19] LABS: Potassium 3.5 mmol/L (3.4-5.0)
[2019-11-06] MEDS: POTASSIUM CHLORIDE 20 MEQ TABLET PO (21:48)
[2019-11-07] VITALS: PULSE 60
[2019-11-07 04:00] VITALS: PULSE 56
[2019-11-07 05:53] LABS: Alanine Aminotransferase 72 U/L (4-35); Albumin Level 2.9 g/dL (3.5-5.1); Alkaline Phosphatase 54 U/L (38-126); Aspartate Amino Transferase 183 U/L (14-36); Bilirubin,Total 0.8 mg/dL (0.2-1.3); Blood Urea Nitrogen 12 mg/dL (7-17); Carbon Dioxide 27 mmol/L (22-30); Chloride 111 mmol/L (98-107); Estimated CRCL calculation 59 ml/min; Estimated Glomerular Filt Rate > 60; Glucose 101 mg/dL (65-105); Magnesium 1.7 mg/dL (1.6-2.3); Phosphorus 2.6 mg/dL (2.5-4.5); Sodium 139 mmol/L (137-145)
[2019-11-07 06:00] VITALS: BP 106/54; PULSE 56; RESP 16; TEMP 36.9; O2SAT 100
[2019-11-07 08:00] VITALS: BP 109/54; PULSE 58
[2019-11-07] MEDS: MAGNESIUM SULF 2 GM/WATER 50ML 2 GM/50 ML BAG IVPB (09:00)
[2019-11-07] MEDS: ASPIRIN 325 MG TABLET PO (09:06)
[2019-11-07] MEDS: lisinopriL 5 MG TABLET PO (09:07)
--- NOTE | 2019-11-07 09:13 | PM.DS ---
DS: Diagnosis Admitting Diagnosis Admitting Diagnosis: Essential (primary) hypertension Discharge Diagnosis (1) Acute hypokalemia: Code(s): E87.6 - Hypokalemia Status: Acute Assessment and Plan: Date of Service 11/07/19 Ms. Ocampo is a 74yo F who presented to the emergency department due to chest pain. She had been experiencing numbness and tingling in her lower extremities about 1 week prior to presentation with associated muscle cramps, which ascended to her arms and trunk a few days later. On arrival, she noted a pressure sensation in her mid chest. She described that the numbness/tingling/cramping worsened in the ER when the blood pressure cuff squeezed on her arm. Her potassium was 2.0 and magnesium as low as 0.9, calcium 5.5. Troponin elevated but flat profile. Dr Bowie was consulted for her chest pain and she was admitted to receive aggressive electrolyte repletion. Electrolyte imbalances may have been related to HCTZ use and a recent GI illness with associated diarrhea. Once electrolytes were replaced, her paresthesias and chest pain resolved. Cardiology recommended follow up as an outpatient to possibly undergo stress testing at a later date. She was hemodynamically stable for discharge 11/07/19 with oral potassium and magnesium supplementation with instructions to follow up with PCP in [address] Bowie in 2 weeks. Her HCTZ was discontinued and blood pressures were stable, even on lower end without it. Consultation: -- Cardiology - Dr Bowie Potassium as low as 2.0 on arrival, replaced parenterally and orally. May have been related to snf HCTZ use and recent diarrhea. HCTZ discontinued. Electrolytes will need to continue to be monitored outpatient. (2) Hypocalcemia: Code(s): E83.51 - Hypocalcemia Status: Acute Assessment and Plan: Replaced with calcium gluconate. Monitor outpatient. (3) Paresthesia: Code(s): R20.2 - Paresthesia of skin Status: Resolved Assessment and Plan: [place] to be related to electrolyte losses. See above. Now completely resolved with electrolyte correction. (4) Chest pain: Qualifiers: Chest pain type: unspecified Qualified Code(s): R07.9 - Chest pain, unspecified Code(s): R07.9 - Chest pain, unspecified Status: Resolved Assessment and Plan: [place] to be related to above, muscle cramping. Dr Bowie consulted per patient request and recommends plan for outpatient follow up with stress testing. (5) Elevated troponin: Code(s): R79.89 - Other specified abnormal findings of blood chemistry Status: Acute Assessment and Plan: Troponins flat and trending down. ACS not suspected, since pain has resolved with electrolyte correction. (6) Acute renal failure: Qualifiers: Acute renal failure type: unspecified Qualified Code(s): N17.9 - Acute kidney failure, unspecified Code(s): N17.9 - Acute kidney failure, unspecified Status: Resolved Assessment and Plan: Resolved. Cr 1.2 on arrival, improved to 0.9 day of discharge. HCTZ stopped. (7) Essential (primary) hypertension: Code(s): I10 - Essential (primary) hypertension Status: Acute Assessment and Plan: BP stable. Continue to monitor. Home HCTZ discontinued due to hypokalemia, lisinopril resumed. DS: Summary Time Spent with Patient Time attestation: Total time spent providing and/or coordinating discharge services: 35 minutes Exam Narrative: Exam Narrative: General: Well-appearing female sitting up on edge of bed in no acute distress. HEENT: Normocephalic, EOMI, oral mucosa moist. Chest: Clear to auscultation throughout all lung fie
[2019-11-07] MEDS: CALCIUM GLUC 2,000 MG/NS 100ML 2,000 MG/100 ML BAG 100 MG IVPB (10:15)
== END 2019-11-07 12:10 | disposition home or self-care (01) | DRG 641 ==
LOC: ANHED 03:45 → ANHIMU 04:59 → ANH2MED 11-06 11:29 → ANHIMU 11-09 09:18
PROVIDERS: Family Medicine; Internal Medicine Cardiovascular Disease; Physician Assistant; Admitting Provider Internal Medicine; Emergency Provider Emergency Medicine; PCP Internal Medicine; Visit Provider Hospitalist
DX: E87.6 Hypokalemia (principal); N17.9 Acute kidney failure, unspecified; E83.51 Hypocalcemia; T50.2X5A Adverse effect of carbonic-anhydrase inhibitors, benzothiadiazides and other diuretics, initial encounter; R07.89 Other chest pain; R20.2 Paresthesia of skin; M62.838 Other muscle spasm; R79.89 Other specified abnormal findings of blood chemistry; I10 Essential (primary) hypertension; Z90.49 Acquired absence of other specified parts of digestive tract
CPT/HCPCS: 36415; 71046; 80048; 80053; 80061; 81001; 83735; 84100; 84132; 84484; 85025; 85027; 85610; 85730; 87086; 93005; 93306; 96365; 96366; 96375; 99291; A9270; G0378; J0610; J3475; J3480; J7040

== ENCOUNTER 2020-01-20 09:38 | Outpatient (CLI) | payer OTHER, SELFPAY ==
--- NOTE | ~2020-01-20 | NM_ITS ---
EXAMINATION: NM jack stress w perfusion DATE: 01/20/2020 13:03 INDICATION: Dyspnea TECHNIQUE: Rest images were obtained following intravenous administration of 9.8 mCi Tc99m tetrofosmi n (Myoview). The patient was infused intravenously with Lexiscan (Regadenoson). Then, 32 mCi Tc99m te trofosmin (Myoview) was administered intravenously, and stress images were obtained. Data was reconst ructed into short axis and horizontal and vertical long axis SPECT images. Gated SPECT images were al so obtained. COMPARISON: None. FINDINGS: There is no definite reversible or fixed perfusion abnormality to suggest ischemia or infar ction. There is normal left ventricular chamber size, wall motion and ejection fraction. Left ventr icular ejection fraction measures >70%. IMPRESSION: 1. Normal myocardial perfusion at rest and during stress. 2. Left ventricular ejection fraction measuring >70%. Reviewed, dictated and finalized at location A.
--- NOTE | 2020-01-20 09:43 | EST_ITS ---
Patient Info Name: Michelle Ocampo Age: 74 years : 1945 Gender: Female Ht: 65 in Wt: 160 lbs BSA: 1.84 m2 Exam Date: 01/20/2020 10:35 AM Exam Location: [facility] Stress Patient Status: Outpatient Admit Date: 01/20/2020 Staff Ordering Physician: Sukumar Bowie DO Attending Provider: Sukumar Bowie DO Exercise Technologist: Monie Babcock RDCS Exercise Physician: Sukumar Bowie DO Exam Type: CA stress jack w NM Study Info Indications R06.00 - Dyspnea, unspecified A regadenoson stress test was performed. Summary 1. 1. Negative Lexiscan stress test for ischemic ST changes by ECG criteria. 2. 2. Baseline hypertension. 3. 3. Nuclear scan to follow and will be reported separately. Please correlate with it. 4. 4. Patient informed of the above results. Protocol: Lexiscan Stress ECG Details Stage: REST Duration (min): 4 min : 28 sec HR (bpm): 68 SBP (mmHg): 152 DBP (mmHg): 89 Stage: REST Duration (min): 8 min : 38 sec HR (bpm): 71 SBP (mmHg): 152 DBP (mmHg): 89 Stage: STAGE 1 Duration (min): 0 min : 59 sec HR (bpm): 106 SBP (mmHg): 158 DBP (mmHg): 81 Stage: RECOVERY Duration (min): 1 min : 0 sec HR (bpm): 114 SBP (mmHg): 156 DBP (mmHg): 83 Stage: RECOVERY Duration (min): 2 min : 0 sec HR (bpm): 110 SBP (mmHg): 156 DBP (mmHg): 83 Stage: RECOVERY Duration (min): 3 min : 0 sec HR (bpm): 102 SBP (mmHg): 147 DBP (mmHg): 83 Stage: RECOVERY Duration (min): 3 min : 3 sec HR (bpm): 102 SBP (mmHg): 147 DBP (mmHg): 83 Rest HR: 71 bpm Peak HR: 117 bpm Rest Sys BP: 152 mmHg Peak Sys BP: 158 mmHg Max Pred HR: 148 bpm % Max Pred HR: 79 % Target HR: 126 bpm Max RPP: 18,486 bpm*mmHg Termination Reason: Completed protocol Cardiac Symptoms: None Total Time: 1 min : 0 sec Rest Gonzalez BP: 89 mmHg Peak Gonzalez BP: 81 mmHg Total Dose: 0.4 mg Resting ECG Sinus rhythm, PAC, PVC. Stress ECG No ST changes. Arrhythmias None. Report Signatures
== END 2020-01-20 09:39 | disposition home or self-care (01) ==
PROVIDERS: PCP Internal Medicine; Visit Provider Internal Medicine Cardiovascular Disease
DX: R06.00 Dyspnea, unspecified (principal)
CPT/HCPCS: 78452; 93017; A9502; J2785

== ENCOUNTER 2025-05-18 02:32 | Day surgery (SDC) | payer OTHER, SELFPAY ==
--- OUTSIDE RECORDS SUMMARY | 2012-07-27 19:00 | XMS_ITS | Continuity of Care Document ---
Author Organization [facility] Address [address] [place] [address] Phone Care Team Providers Care Casing Fluid Tender Name Role Phone [facility] Unavailable Unavail able Allergies, Adverse Reactions, Alerts Substance Reaction Status Criticality No Known allergies Medications Medication Instructions Dosage Effective Dates (start - stop) Status Comments Amlodipine 5 mg Tab - Active Procedures Procedure Date Contact Lens Hydrophilic, Spherical No Charge Glasses Check No Charge Glasses Check No Charge Glasses Check Eye Exam, New Patient Advance Directives Directive Yes / No Effective Date File Name No Information Encounters Encounter Description Practice Location Reason(s) For Visit Diagnoses Date Provider Providers Copied on Encounter [facility], [address], [place], [place], [id number], [place] tel:[phone] SEC Chay [place] Professional No Information 3 [facility] . [address], [address], [place], [place], [address], [place]. tel:[phone] Referring Provider: Eagle Moya MD, [address] [place] [address], [place], [address] . tel:[phone] [facility], [address], [place], [place], [id number], tel:[phone] SEC [place] MAXI Professional No Information 2 Satya Shah. [address] [place], [place], [id number], . tel:[phone] Referring Provider: Eagle Moya MD, [address], [place], [address] . tel:[phone] [facility], [address], [place], [place], [address], [place] tel:[phone] SEC Chay GERMAN Professional No Information Dec-1 201 2 [place]. [address], [facility] [place], [address], [place]. tel:[phone] Referring Provider: Eagle Moya MD, [address], [place], [address] . tel:[phone] [facility], [address], [place], [place], [id number], tel:[phone] SEC Chay GERMAN Professional No Information Dec-0 2 [place]. [address], [address], [place], [place], [address], [place]. tel:[phone] Referring Provider: Eagle Moya MD, [address], [place], [address] . tel:[phone] [facility], [address], [place], [place], [address], [place] tel:[phone] SEC Chay GERMAN Professional [employer] May- 2 [place]. [address], [address], [place], [place], [address], [place]. tel:[phone] Referring Provider: Eagle Moya MD, [address], [place], [address] . tel:[phone] Family History Family Member Type Diagnosis Age At Onset No Information Payers Payer name Insurance type Covered republican ID Authoriza tion(s) No Information Social History Type Description Quantity Date Captured Comments Sex Female Smoking Status No Information Chief Complaint And Reason For Visit No Information Reason For Referral Reason For Referral No Information History Of Present Illness Encounter Date Complaint History Of Prese nt Illness No Information Functional Status Date Functional Assessmen t No Information Instructions Date Instruction Additional Infor sherron - 6 months cl check Related to C ataract, Nuclear Sclerosis CL fitting- w/ KIRSTEN - Discussed fitting of contacts. Pt should be able to wear lenses for aprox 3 weeks. OK to order. Will monitor. Related to Cataract, Nuclear Sclerosis - few weeks after ge ts new trials of AV oasis 8.4-same as old trials KIRSTEN - AT witk cl's in - 2-3weeks, refract over cl's CL fitting - Contact class when trials are in Related to Cataract, Nuclear Sclerosis Cataract, Nuclear Sc lerosis, OU - vision not affected - will continue to monitor - Discussed dx in detail with pt. Pt would like to wear contacts. Pt understands a new Rx will help at this time, pt to monitor [facility] THIERRY trials +1.25 BC 8.4- pt needs insertion and removal class. Related to Cataract, Nuclear Sclerosis Assessments Type Assessment Date No Information Patient Care Teams Name Effective Dates (start - stop) Status Members No Information
[2025-05-11 16:13] VITALS: BMI 26.6
--- OUTSIDE RECORDS SUMMARY | 2025-05-18 02:36 | XMS_ITS | Patient Health Record ---
Author Organization [facility] Address [address] [facility] [place]. 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 Name Role Phone Eagle Moya Primary Care Provider Unavaila ble Reason For Referral No Information Medications Medication SIG (Take, Route, Frequency, Duration) Notes Start Date End Date Status Lisinopril Active OTC/Vitamins Ibuprofen, Zinc, Iron Active Social History Tobacco Use: Social History Observation Description Date Details (start date - stop date) Never Smoker NA - NA Tobacco Use/Smoking Question Answer Notes Are you a nonsmoker Problems Problem Type SNOMED Code ICD Code Onset Dates Problem Status W/U Status Risk Notes Problem Diarrhea (14236200) Diarrhea, unspecified (R19.7) Active confirmed Problem Elevated liver enzymes level (178845001) Elevated liver enzymes (R74.8) Active confirmed Problem Hepatitis C antibody detected (finding) (559679568) Hepatitis C antibody positive in blood (R76.8) Active confirmed Plan Of Treatment No Information Insurance Providers Payer Name Payer Address Payer Phone Subscriber Number Group Number Insured Name Patient Relationship to Insured Coverage Start Date Coverage End Date [facility] [address] [place] [address] [id number] Michelle Ocampo Self - patient is the insured Medical (General) History Surgical History Surgery Date(Month/Year) Intestional Bypass 1970 Kidney Stone 1977 Hospitalization History Reason Date(Month/Year) Childbirth complications 1968 Dilation and Curettage for heavy menstru ation 1974 Cataract-Right Eye 2019
[2025-05-18 11:45] VITALS: BP 145/61; PULSE 72; RESP 16; TEMP 36.3; O2SAT 99; BMI 25.4
[2025-05-18] MEDS: LACTATED RINGERS 1,000 ML 150 ML IV CONT (12:20)
--- NOTE | 2025-05-18 12:26 | PM.HPGS ---
History of Present Illness History of Present Illness Consent: Risks, benefits, and alternatives have been discussed and questions answered. Patient agrees to proceed with procedure. Chief complaint: screening/positive cologuard Narrative: Michelle Ocampo is a 80 year old female here for first colonoscopy, + cologuard Review of Systems Review of Systems: All systems reviewed & are unremarkable except as noted in HPI and below PMFSH Past Medical History Medical History (Updated 05/18/25 @ 12:27 by Gómez Trevino MD) Positive colorectal cancer screening using Cologuard test Arthritis Hypertension Acute renal failure Paresthesia History of nephrolithotomy with removal of calculi Complaint of paresthesia Essential (primary) hypertension Surgical History Surgical History H/O cataract removal with insertion of prosthetic lens Right - May 2019 Hx of appendectomy History of cholecystectomy 1970s. 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 She denies alcohol use, remote history of smoking cigarettes for 1 year, denies substance use. PCP is Dr Moya. She designates her , Will, as her surrogate decision maker. She wishes to be full code status. Smoking status: Never smoker Second hand tobacco smoke exposure: No Alcohol intake: never Substance use: never Substance use type: does not use Do You Feel Safe in your Home?: Yes Lack of Transportation: No Lack of Food: Never True Current Housing: I Have Housing Concerned About Future Housing: No Difficulty Paying Gas/Electric Bills: No Difficulty Paying for Meds: No Currently Unemployed: No Education: High School Diploma/GED Difficulty w/ Childcare or Family Care: No Living arrangements: with family Occupation/Education: retired Gender identity (if verbalized by the patient): Female Spiritual care concerns: No Agree to blood products: No Meds Home Medications and Allergies Home Medications ?Medication ?Instructions ?Recorded ?Confirmed ?Type ibuprofen 400 mg tablet 200 mg PO Q6H PRN Pain, Mild 07/29/21 05/11/25 History zinc 50 mg tablet 50 mg PO DAILY 07/29/21 05/11/25 History mecobalamin (vitamin B12) 1,000 1,000 mcg sublingual DAILY 10/03/21 05/18/25 History mcg disintegrating tablet,sublingual multivitamin-ferrous 1 tablet PO DAILY 10/23/21 05/18/25 History fumarate-folic acid 18 mg-400 mcg tablet (Centrum Women) coenzyme Q10 30 mg capsule (CoQ-10) 30 mg PO DAILY 01/08/22 05/11/25 History magnesium oxide 400 mg (241.3 mg 400 mg PO DAILY #30 tabs 05/15/23 05/11/25 Rx magnesium) tablet (MagOx) acrivastine-pseudoephedrine 8 cap PO DAILY PRN ALLERGIES 09/30/23 05/05/25 History mg-60 mg capsule lisinopril 20 mg tablet See Rx Instructions .Route 12/02/24 05/18/25 Rx .COMPLEX #180 tabs potassium chloride 10 mEq 10 meq PO DAILY #90 caps 04/18/25 05/11/25 Rx capsule,extended release carvedilol 6.25 mg tablet See Rx Instructions .Route 05/08/25 05/18/25 Rx .COMPLEX #180 tabs [id number] 2 ml PO 3XW PRN dehydration 05/11/25 05/18/25 History coQ10 (ubiquinol) 100 mg capsule 100 mg PO DAILY 05/11/25 05/18/25 History magnesium glycinate 30 ml PO 3XW PRN low magnesium 05/11/25 05/11/25 History max b12 2 ml PO 3XW PRN dehydration 05/11/25 05/11/25 History triamcinolone acetonide 0.1 % See Rx Instructions .Route 05/11/25 05/11/25 History topical cream .COMPLEX PRN rash Allergies Allergy/AdvReac Type Severity Reaction Status Date / Time buckwheat Allergy Unknown Verified 05/18/25 11:55 sweet gum trees Allergy Mild Congested Uncoded 03/30/25 08:59 Vital Signs Vital Signs - 24 hr 05/18/25 11:45 Temperature 97.3 F L Pulse Rate 72 Respiratory Rate 16 Blood Pressure 145/61 H Pulse Oximetry 99 Oxygen Delivery Room Air Exam Const: General: comfortable and no acute distress HENMT: Face/Nose/Sinus: Normal nares present Eyes: General: appearance normal, both eyes and all related structures Neck: Neck: no JVD Resp: Auscultation: clear to auscultation bilaterally Cardio: Rate: regular rate Rhythm: regular rhythm GI: Inspection: non-distended GI Palp: Yes Soft to palpation Skin: General skin exam: normal color Extrem: General: normal to inspection Psych: Mental Status: mental status grossly normal Assessment and Plan Assessment and plan (1) Positive colorectal cancer screening using Cologuard test: Code(s): R19.5 - Other fecal abnormalities Status: Acute Assessment and Plan: colonoscopy
--- NOTE | 2025-05-18 12:33 | WPDANESEPPF ---
Anes - Initial Pre Proc Eval Procedure: Operation Date: 05/18/25 13:00 Proposed Procedures p Screening Colonoscopy - Gómez Trevino MD Date/Time: 05/18/25 12:33 Surgeon: Gómez Trevino MD Pre Op Diagnosis: screening/positive cologuard Patient Data Age: 80 Gender: F Height: 1.65 m Weight: 69.5 kg Last Vital Signs Temp 97.3 F L 05/18/25 11:45 Pulse 72 05/18/25 11:45 Resp 16 05/18/25 11:45 BP 145/61 H 05/18/25 11:45 Pulse Ox 99 05/18/25 11:45 O2 Del Method Room Air 05/18/25 11:45 Allergies Allergy/AdvReac Type Severity Reaction Status Date / Time buckwheat Allergy Unknown Verified 05/18/25 11:55 sweet gum trees Allergy Mild Congested Uncoded 03/30/25 08:59 Home Medications ?Medication ?Instructions ?Recorded ?Confirmed ?Type ibuprofen 400 mg tablet 200 mg PO Q6H PRN Pain, Mild 07/29/21 05/11/25 History zinc 50 mg tablet 50 mg PO DAILY 07/29/21 05/11/25 History mecobalamin (vitamin B12) 1,000 1,000 mcg sublingual DAILY 10/03/21 05/18/25 History mcg disintegrating tablet,sublingual multivitamin-ferrous 1 tablet PO DAILY 10/23/21 05/18/25 History fumarate-folic acid 18 mg-400 mcg tablet (Centrum Women) coenzyme Q10 30 mg capsule (CoQ-10) 30 mg PO DAILY 01/08/22 05/11/25 History magnesium oxide 400 mg (241.3 mg 400 mg PO DAILY #30 tabs 05/15/23 05/11/25 Rx magnesium) tablet (MagOx) acrivastine-pseudoephedrine 8 cap PO DAILY PRN ALLERGIES 09/30/23 05/05/25 History mg-60 mg capsule lisinopril 20 mg tablet See Rx Instructions .Route 12/02/24 05/18/25 Rx .COMPLEX #180 tabs potassium chloride 10 mEq 10 meq PO DAILY #90 caps 04/18/25 05/11/25 Rx capsule,extended release carvedilol 6.25 mg tablet See Rx Instructions .Route 05/08/25 05/18/25 Rx .COMPLEX #180 tabs [id number] 2 ml PO 3XW PRN dehydration 05/11/25 05/18/25 History coQ10 (ubiquinol) 100 mg capsule 100 mg PO DAILY 05/11/25 05/18/25 History magnesium glycinate 30 ml PO 3XW PRN low magnesium 05/11/25 05/11/25 History max b12 2 ml PO 3XW PRN dehydration 05/11/25 05/11/25 History triamcinolone acetonide 0.1 % See Rx Instructions .Route 05/11/25 05/11/25 History topical cream .COMPLEX PRN rash Patient hx anesthesia problems: none Family hx anesthesia problems: none Results Review: All pre-operative results and documents have been reviewed as part of the pre-operative evaluation. [facility] Past Medical History Medical History (Updated 05/18/25 @ 12:27 by Gómez Trevino MD) Positive colorectal cancer screening using Cologuard test Arthritis Hypertension Acute renal failure Paresthesia History of nephrolithotomy with removal of calculi Complaint of paresthesia Essential (primary) hypertension Surgical History Surgical History H/O cataract removal with insertion of prosthetic lens Right - May 2019 Hx of appendectomy History of cholecystectomy 1970s. 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 She denies alcohol use, remote history of smoking cigarettes for 1 year, denies substance use. PCP is Dr Moya. She designates her , Will, as her surrogate decision maker. She wishes to be full code status. Smoking status: Never smoker Second hand tobacco smoke exposure: No Alcohol intake: never Substance use: never Substance use type: does not use Do You Feel Safe in your Home?: Yes Lack of Transportation: No Lack of Food: Never True Current Housing: I Have Housing Concerned About Future Housing: No Difficulty Paying Gas/Electric Bills: No Difficulty Paying for Meds: No Currently Unemployed: No Education: High School Diploma/GED Difficulty w/ Childcare or Family Care: No Living arrangements: with family Occupation/Education: retired Gender identity (if verbalized by the patient): Female Spiritual care concerns: No Agree to blood products: No Anes - Eval Final PreProcedure Day of Procedure 05/18/25 12:33 Patient weight: normal Heart: regular rate and rhythm Lungs: clear to auscultation and decreased breath sounds Airway: Mallampati scale class 1 Neurological: alert and oriented Last oral intake: >/= 8 hours ASA classification: II Emergent: no Anesthetic plan: proceed Anesthesia type and monitoring: general GIVS and standard monitoring Results Review: All pre-operative results and documents have been reviewed as part of the pre-operative evaluation. Informed Consent: The patient's anesthetic plan and its attendant risks and benefits were discussed with the patient/family/POA. Questions were solicited and answers provided to the satisfaction of the patient/family/POA.
[2025-05-18 13:02] VITALS: BP 104/57; PULSE 62; RESP 19; O2SAT 97
[2025-05-18 13:12] VITALS: BP 109/55; PULSE 60; RESP 17; O2SAT 100
[2025-05-18 13:22] VITALS: BP 120/60; PULSE 58; RESP 16; O2SAT 100
== END 2025-05-18 13:35 | disposition home or self-care (01) ==
PROVIDERS: PCP Internal Medicine; Referring Provider Internal Medicine; Visit Provider Internal Medicine Gastroenterology
PROC: 0DJD8ZZ Inspection of Lower Intestinal Tract, Via Natural or Artificial Opening Endoscopic (ICD-10-PCS; CPT 45378; principal; 2025-05-18 13:00)
DX: R19.5 Other fecal abnormalities (principal); K64.8 Other hemorrhoids; I10 Essential (primary) hypertension; N17.9 Acute kidney failure, unspecified; R20.2 Paresthesia of skin; M19.90 Unspecified osteoarthritis, unspecified site; Z79.1 Long term (current) use of non-steroidal anti-inflammatories (NSAID); Z98.890 Other specified postprocedural states; Z90.5 Acquired absence of kidney; Z90.49 Acquired absence of other specified parts of digestive tract; Z87.891 Personal history of nicotine dependence; Z80.7 Family history of other malignant neoplasms of lymphoid, hematopoietic and related tissues
CPT/HCPCS: 45378; J2003; J2704; J7120